=== PATIENT | male | born 1970 | race African-American/Black ===

== ENCOUNTER 2018-09-03 08:24 | Emergency (ER) | payer BC ==
[~2018-09-03] VITALS: Ht 180.3 cm; Wt 84.4 kg
[2018-09-03 08:35] VITALS: BP 118/90; Ht 180.3 cm; Wt 84.4 kg
== END 2018-09-03 09:34 | disposition home or self-care (01) ==
LOC: ED 08:24
DX: S40.862A Insect bite (nonvenomous) of left upper arm, initial encounter (principal); W57.XXXA Bitten or stung by nonvenomous insect and other nonvenomous arthropods, initial encounter; Y92.9 Unspecified place or not applicable
CPT/HCPCS: J7512; Q0163